=== PATIENT | female | born 1980 | race American Indian/Alaskan Native ===

== ENCOUNTER 2021-07-28 07:34 | Outpatient (CLI) | payer OTHER ==
--- NOTE | 2021-07-28 08:35 | Fluoroscopy Report ---
BARIUM SWALLOW Indication: MORBID OBESITY. Technique: Single and double contrast barium technique utilized to evaluate the esophagus. FINDINGS: To begin the exam, swallowing was evaluated in the lateral position under direct fluorosco py. Swallowing was normal. No mucosal irregularity, mass, mass effect, or critical stenosis. There were no abnormal tertiary c ontractions as seen with dysmotility. No gastroesophageal reflux. IMPRESSION: Unremarkable exam. Fluoroscopic time: 1.2 minutes Number of fluoroscopic images: 24 Signer Name: Nils Bermudez Jr, MD Signed: 07/28/2021 8:31 AM Workstation Name: [id number]
== END 2021-07-28 07:35 | disposition home or self-care (01) ==
LOC: FLUORO 07:34
PROVIDERS: ATTEND Surgery
DX: E66.01 Morbid (severe) obesity due to excess calories (principal)
CPT/HCPCS: 74220

== ENCOUNTER 2021-10-27 06:26 | Day surgery (SDC) | payer OTHER ==
[2021-10-27] MEDS ORDERED: SODIUM CHLORIDE 0.9% 1000 ML 1,000 ML IV SCH (07:00)
--- NOTE | 2021-10-27 07:36 | Anesthesia Consultation ---
Anesthesia Consult and Med Hx Date of service: 10/27/21 - Airway Anesthetic Teeth Evaluation: Good ROM Head & Neck: Adequate Mental/Hyoid Distance: Adequate Mallampati Class: Class II Intubation Access Assessment: Probably Good - Pulmonary Exam CTA: Yes - Cardiac Exam Cardiac Exam: RRR - Pre-Operative Health Status ASA Pre-Surgery Classification: ASA3 Proposed Anesthetic Plan: MAC - Pulmonary Hx Smoking: No Hx Asthma: Yes Hx Respiratory Symptoms: No Hx Sleep Apnea: Yes - Cardiovascular System Hx Hypertension: No Hx Heart Attack/AMI: No - Central Nervous System Hx Neuromuscular Disorder: No - Gastrointestinal Hx Gastroesophageal Reflux Disease: No - Endocrine Hx Renal Disease: No Hx Non-Insulin Dependent Diabetes: No Hx Thyroid Disease: No - Hematic Hx Anemia: No - Other Systems Hx Alcohol Use: No Hx Substance Use: No Hx Cancer: No Hx Obesity: Yes (BMI 48)
--- NOTE | 2021-10-27 07:36 | Anesthesia Day of Surgery ---
Anesthesia Day of Surgery - Day of Surgery Patient Examined: Yes Patient H&P Reviewed: Yes Patient is NPO: Yes
[2021-10-27] MEDS ORDERED: propofoL 200 MG/20 ML VIAL IV ONE (07:42)
[2021-10-27] MEDS ORDERED: LIDOCAINE MPF (2%) 20 MG/1 ML VIAL 5 ML ONE (07:42)
--- NOTE | 2021-10-27 08:08 | Operative Report ---
Operative Report Operative Report: DATE: 10/27/2021 SURGERY: Upper endoscopy. SURGEON: Jovan Crow M.D. PROCEDURE: EGD with biopsy PRE OP DX: morbid obesity, GERD POST OP DX: morbid obesity, GERD TYPE OF ANESTHESIA: MAC. ESTIMATED BLOOD LOSS: None. COMPLICATIONS: None. SPECIMENS REMOVED: antral biopsy FINDINGS: 1. Small hiatal hernia. 2. Otherwise, normal esophagus, stomach and first portion of duodenum. INDICATIONS:INDICATION FOR PROCEDURE: Patient is a 41-year-old female with a long history of morbid obesity. She is planned to have a weight loss procedure and is here for preoperative planning EGD. PROCEDURE DETAILS: After consent was reviewed, patient was taken back to the operating room where patient was placed in the left lateral decubitus position and a bite block was placed in the mouth. After a time-out was called, MAC anesthesia was initiated. I then passed the endoscope into her oropharynx, into her esophagus, visualized the entire esophagus, which was all within normal limits. Z-line was noted to about 36cm from incisors. I then visualized the stomach and the first portion of the duodenum and there were no abnormalities I could clearly visualize except for antral gastritis. A cold forceps biopsy of the antrum was taken and will be sent to pathology to evaluate for H.pylori. I then retroflexed the scope in the stomach and visualized the hiatus and I could see a small hiatal hernia. I then desufflated the stomach and removed the endoscope. Patient tolerated procedure well and was transferred to recovery room in good and stable condition.
--- NOTE | 2021-10-27 08:10 | Discharge Summary ---
Providers - Providers Date of Admission: 10/27/2021 Date of discharge: 10/27/21 Attending physician: MACKENZIE PICKARD MD Primary care physician: PLYWOOD PATCHER Hospitalization Reason for admission: pre-op egd Condition: Good Procedures: egd with bx Hospital course: Pt presented for a pre-op EGD as part of planning for up coming bariatric surgery. Procedure was uneventful and pt recovered well and was discharged to home. Disposition: 01 HOME / SELF CARE / HOMELESS Final Discharge Diagnosis (Prints w/discharge instructions): dyspepsia, morbid obesity Core Measure Documentation - Palliative Care Palliative Care/ Comfort Measures: Not Applicable - Core Measures Any of the following diagnoses?: none Exam - Physical Exam Narrative exam: unchanged from pre-op Plan Activity: advance as tolerated Diet: low carbohydrate Follow up with: PRIMARY CAREMD [Primary Care Provider] - 7 Days
[2021-10-27 09:11] VITALS: BP 101/72
--- NOTE | 2021-10-27 09:16 | Post Anesthesia Evaluation ---
- Post Anesthesia Evaluation Patient Participated: Yes Airway Patent: Yes Stable Respiratory Function: Yes Nausea/Vomiting: No Temp > 96.8F: Yes Pain Manageable: Yes Adequeate Hydration: Yes Anesthesia Complications: No
== END 2021-10-27 08:50 | disposition home or self-care (01) ==
LOC: GIO 06:26
PROVIDERS: ATTEND Surgery
DX: K21.9 Gastro-esophageal reflux disease without esophagitis (principal); E66.01 Morbid (severe) obesity due to excess calories; K30 Functional dyspepsia; K44.9 Diaphragmatic hernia without obstruction or gangrene; J45.909 Unspecified asthma, uncomplicated; G47.30 Sleep apnea, unspecified; F41.9 Anxiety disorder, unspecified; Z68.42 Body mass index [BMI] 45.0-49.9, adult; Z88.8 Allergy status to other drugs, medicaments and biological substances
CPT/HCPCS: 43239; 81025; 88305; 88342; J2704; J3490; J7030; J7120; Q0162

== ENCOUNTER 2021-12-07 08:57 | Inpatient (IN) | payer OTHER ==
--- NOTE | 2021-12-03 11:15 | Anesthesia Consultation ---
Anesthesia Consult and Med Hx - Airway Anesthetic Teeth Evaluation: Good ROM Head & Neck: Adequate Mental/Hyoid Distance: Adequate Mallampati Class: Class III Intubation Access Assessment: Probably Good - Pulmonary Exam CTA: Yes - Cardiac Exam Cardiac Exam: RRR - Pre-Operative Health Status ASA Pre-Surgery Classification: ASA3 Proposed Anesthetic Plan: General - Pulmonary Hx Smoking: No Hx Asthma: Yes (Last used inhaler approx 3 days ago) Hx Respiratory Symptoms: No Hx Sleep Apnea: Yes - Cardiovascular System Hx Hypertension: No Hx Heart Attack/AMI: No - Central Nervous System Hx Neuromuscular Disorder: No Hx Psychiatric Problems: Yes - Gastrointestinal Hx Gastroesophageal Reflux Disease: No - Endocrine Hx Renal Disease: No Hx Non-Insulin Dependent Diabetes: No Hx Thyroid Disease: No - Hematic Hx Anemia: No - Other Systems Hx Alcohol Use: Yes (Occas) Hx Substance Use: No Hx Cancer: No Hx Obesity: Yes (BMI 48) - Additional Comments Anesthesia Medical History Comments: GA with TAP discussed and accepted. All labs and chart were reviewed. All questions answered
[2021-12-03 11:23] LABS: Hematocrit 38.3 % (30.3-42.9); Hemoglobin 13.3 gm/dl (10.1-14.3); Mean Corpuscular HGB Conc 35 % (30-34); Mean Corpuscular Volume 78 fl (79-97); Platelet Count 298 K/mm3 (140-440); Red Cell Distribution Width 14.8 % (13.2-15.2)
[2021-12-03 11:41] LABS: Alanine Aminotransferase 20 units/L (7-56); Albumin 4.2 g/dL (3.9-5); Blood Urea Nitrogen 17 mg/dL (7-17); Calcium 9.7 mg/dL (8.4-10.2); Hemolysis Index 0
[2021-12-03 11:48] LABS: BUN/Creatinine Ratio 28
[~2021-12-07 08:57] MED LIST: ACETAMINOPHEN IV 1,000 MG/100 ML BOTTLE IV NR; BUPIVACAINE/PF (0.5%) 5 MG/1 ML 10 ML VIAL INFILTRATI NR; CELECOXIB 200 MG CAP PO NR; ENOXAPARIN 40 MG/0.4 ML INJ SUB-Q NR; GABAPENTIN 300 MG CAP PO NR; GABAPENTIN 500 MG/10 ML ORAL LIQD PO NR; LACTATED RINGERS 1,000 ML IV SCH; LIDOCAINE (1%) 10 MG/1 ML VIAL 20 ML MDV INFILTRATI NR; MIDAZOLAM 2 MG/2 ML INJ IV NR; SODIUM CHLORIDE 0.9% P/F 10 ML VIAL INFILTRATI NR; fentaNYL 100 MCG/2 ML INJ IV NR; methOCARBAMOL 1,000 MG in SODIUM CHLORIDE 0.9% 250ML 250 ML IV SCH; metroNIDAZOLE/NS 500 MG/100 ML 500 MG/100 ML BAG IV NR
[2021-12-07] MEDS ORDERED: SCOPOLAMINE TRANSDERMAL PATCH 72 HR TD SCH (10:00)
--- NOTE | 2021-12-07 10:10 | Anesthesia Day of Surgery ---
Anesthesia Day of Surgery - Day of Surgery Patient Examined: Yes Patient H&P Reviewed: Yes Patient is NPO: Yes Cardiac Clearance: Yes Pulmonary Clearance: Yes
[2021-12-07] MEDS ORDERED: LIDOCAINE 2%/EPINEPHRINE 1:200,000 VIAL (20 ML) INFILTRATI ONE (11:05)
[2021-12-07] MEDS ORDERED: BUPIVACAINE/PF (0.25%) 2.5 MG/ML 30 ML VIAL INFILTRATI ONE ×2 (11:05→13:28)
[2021-12-07] MEDS ORDERED: KETOROLAC 30 MG/1 ML INJ ONE (11:35)
[2021-12-07] MEDS ORDERED: dexAMETHasone 20 MG/5 ML VIAL ONE (11:35)
[2021-12-07] MEDS ORDERED: ONDANSETRON 4 MG/2 ML INJ ONE (11:35)
[2021-12-07] MEDS ORDERED: ROCURONIUM 50 MG/5 ML INJ IV ONE ×2 (11:35→13:54)
[2021-12-07] MEDS ORDERED: KETAMINE/STERILE WATER 50 MG/ML SYRINGE ONE (11:37)
[2021-12-07] MEDS ORDERED: SUGAMMADEX SODIUM 200 MG/2 ML VIAL IV ONE (11:49)
[2021-12-07] MEDS ORDERED: MAGNESIUM SULFATE 4 GM/100 ML BAG IV ONE (11:49)
[2021-12-07] MEDS ORDERED: LIDOCAINE MPF (2%) 20 MG/1 ML VIAL 5 ML ONE (12:10)
[2021-12-07] MEDS ORDERED: fentaNYL 100 MCG/2 ML INJ ONE (12:10)
--- OUTSIDE RECORDS SUMMARY | 2021-12-07 12:52 | External Medical Summary ---
:1980 Author Organization [facility], [facility] Address [address] [place] [address] Care Team Providers Name Role Phone Mignon Unavailable [phone] PROBLEMS Type Condition ICD9-CM [id number] Onset Condition W/U Status Risk SNOM ED Notes Code Code Dates Status Code Problem Morbid E66.01 Active confirmed 592257266 (severe) obesity due to excess calories Problem Dietary Z71.3 Active confirmed 673681771 counseling and surveillance Problem Functional K30 Active confirmed 0193769 dyspepsia Problem Sleep apnea, G47.30 Active confirmed 9806703 6 unspecified Problem Anxiety F41.9 Active confirmed 803322810 disorder, unspecified ALLERGIES Allergen (clinical drug Drug/Non Drug Allergy Reaction Allergy Type Onset Date Status ingredient) documented on EMR hydrocodone Hydrocodone Unknown Drug Allergy Active ENCOUNTERS from 1981 to 2021-12-07 Encounter Location Date Provider Diagnosis [facility] Nov, Jovan Crow Morbi d (severe) RD [facility] obesity due to excess of [facility] [place], [place] calorie s E66.01 and [id number] Sleep apnea, unspecified G47 .30 IMMUNIZATIONS No Information SOCIAL HISTORY Sex Assigned At : Social History Observation Description Sex Assigned At Unknown REASON FOR REFERRAL from 1980 to 2021-12-07 Reason GASTRIC SLEEVE Diagnosis 1 Morbid (severe) obesity due to excess calories (E66.01) Diagnosis 2 Sleep apnea, unspecified (G4 7.30) Diagnosis 3 Anxiety disorder, unspecifie d (F41.9) Diagnosis 4 Functional dyspepsia (K30) Diagnosis 5 Gastro-esophageal reflux dis ease without esophagitis (K21.9) Referral Organization [facility] Referring Provider First Name Jovan Referring Provider Last Name Mignon Referring Provider Specialty Surgery Referred Provider [facility], - Referral Priority Routine VITAL SIGNS Height 65.5 in Nov, Weight 292 lbs Nov, Temperature 97.3 degrees Fahrenheit Nov, BMI 47.85 kg/m2 Nov, Blood pressure systolic 146 mm Hg Nov, Blood pressure diastolic 83 mm Hg Nov, MEDICATIONS Medication SIG (Take, Route, Frequency, Notes Start Date End Indra e Status Duration) Vitamin D Active Sertraline HCl 100 MG 1 tablet Orally Once a day Active for 30 day(s) Ondansetron 4 MG 1-2 tablet on the tongue and Nov, Active allow to dissolve Orally q 4-6 hours prn nausea Omeprazole 40 MG 1 capsule 30 minutes before Nov, Active morning meal Orally Once a day albuterol prn Active tiZANidine HCl 4 MG 1 tablet as needed Orally Active Three times a day PROCEDURES No Information RESULTS No Results REASON FOR VISIT Gastric Sleeve Preop MEDICAL (GENERAL) HISTORY Type Description Date Medical History anxiety Medical History right knee pain Medical History sleep apnea Medical History asthma Surgical History No know Surgical history Goals Section No Information Health Concerns No Information MEDICAL EQUIPMENT No Information MENTAL STATUS No Information FUNCTIONAL STATUS No Information ASSESSMENTS Encounter Date Diagnosis Assessment Notes Treatment Notes Treatm ent Clinical Notes Nov, Morbid (severe) An hour was spent obesity due to with patient excess calories reinforcing diet, (ICD-10 - E66.01) vitamin requirements and lifestyle education, A quiz was administered and reviewed to verify understanding of intended procedure and post operative care. Consent forms were reviewed with patient and signed answering all questions, Pre-operative labs were ordered. Nov, Sleep apnea, Continue use of CPAP unspecified machine, should (ICD-10 - G47.30) resolve or greatly improve after weight loss surgery, and will titrate CPAP machine as tolerated. PLAN OF TREATMENT Medication Medication Name Sig Start Date Stop Date Ondansetron 4 MG 1-2 tablet on the tongue and allow to Nov, 022 dissolve Orally q 4-6 hours prn nausea Omeprazole 40 MG 1 capsule 30 minutes before morning meal Nov Orally Once a day Treatment Notes Assessment Notes Clinical Notes Morbid (severe) obesity due to An hour was spent with patient reinforcing diet, vitamin requirements and lifestyle education, A quiz was administered and reviewed to verify understanding of intended procedure and post operative care. excess calories Consent forms were reviewed with patient and signed answering all questions, Pre-operative labs were ordered. Sleep apnea, unspecified Continue use of CPAP machine , should resolve or greatly improve after weight loss surgery, and will titrate CPAP machine as tolerated. Referrals Referral Date Details GASTRIC SLEEVE Next Appt Details for surgery Reason: Provider Name:Jovan Crow, 2021-11- 8 11:00:00 AM, [address] [facility], [place], [place], [phone], Insurance Providers Payer Name Payer Payer Insured Patient Coverage Coverage Subscriber Group Address Phone Name Relationship Start End Date Number Nu mber to Insured Date JACQUELINE [address] JULIANN,MOHINDER self [id number] [place] CLAIMS [id number] [facility] [address] [facility] [place] [address]
[2021-12-07] MEDS ORDERED: SODIUM CHLORIDE 0.9% IRR 1,500 ML BOTTLE IR ONE (13:28)
[2021-12-07] MEDS ORDERED: LIDOCAINE 2%/EPINEPHRINE 1:100,000 VIAL (20 ML) INFILTRATI ONE (13:28)
[2021-12-07] MEDS ORDERED: ePHEDrine SULFATE 50 MG/1 ML INJ ONE (13:46)
[2021-12-07] MEDS ORDERED: propofoL 200 MG/20 ML VIAL IV ONE ×2 (13:50→14:28)
[2021-12-07] MEDS ORDERED: SIMETHICONE 80 MG CHEW TAB PO PRN (15:10)
[2021-12-07] MEDS ORDERED: HYDROmorphone 1 MG/1 ML INJ IV PRN (15:10)
[2021-12-07] MEDS ORDERED: METOCLOPRAMIDE 10 MG/2 ML INJ IV PRN (15:10)
[2021-12-07] MEDS ORDERED: hydrALAZINE 20 MG/1 ML INJ IV PRN (15:10)
[2021-12-07] MEDS ORDERED: LACTATED RINGERS 1,000 ML IV SCH (15:15)
[2021-12-07] MEDS ORDERED: ALBUTEROL 8.5 GM MDI INHALATION IH PRN (15:16)
--- NOTE | 2021-12-07 15:19 | Operative Report ---
Operative Report Operative Report: DATE:12/07/2021 Surgeon: Jovan Crow MD General Matcher surgeon: Pre-op Dx: morbid obesity, hiatal hernia Post-op Dx: morbid obesity, hiatal hernia Procedure: 1. laparoscopic sleeve gastrectomy, 2. hiatal hernia repair Anesthesia: GETA and TAP block EBL: <10ml Specimen: gastric remnant Complication: none immediate Indication: 41 year old female with a history of morbid obesity . Pt is here for sleeve gastrectomy for weight loss to achieve healthier weight and improve or resolve his co-morbidities. She expressed understanding of the risks and benefits. PROCEDURE IN DETAIL: After consent was reviewed, patient was taken back to the operating room, where patient was placed supine on the bed with both arms out. The patient's legs were doubly strapped to the bed. Patient had a foot board in place. Patient had a body warmer placed by anesthesia. General anesthesia was induced with successful endotracheal intubation. Patient was then prepped and draped in normal sterile surgical fashion. After a time-out was called, I made a stab incision in the left subcostal area and placed a Veress needle through this incision and insufflated the abdomen to 15 mmHg pressure. I then counted down a handsbreadth below the xiphoid process in the midline and slightly left lateral injected local anesthetic and made about 1 cm transverse incision. I then used a 5-mm Optiview trocar to enter into the abdomen. There was no gross injury to any intra-abdominal structures. I then placed a 30-degree scope through this port and inspected the abdomen. I then placed a 8-mm port in the right upper quadrant, and 1 5mm in the epigastric area below the costovertebral angle. I then placed a 15-mm port about a handsbreadth in the right mid abdomen. After which a 5mm port was placed in left upper quadrant port along the anterior axillary line in a similar fashion. A liver retractor was placed to the epigastric port to elevate the left lateral lobe and liver. There was a small hiatal hernia appreciated that was accentuated with right and left crural dissection. Hiatal hernia sac was dissected from the crura until the GE junction was resting about 2cm below the level of the diaphragm without tension. An anterior crura-plasty was preformed a U-stitch using surgidac suture. The anterior gastric fat pad was excised. Starting approximately 6 cm proximal to the pylorus, using a Enseal device the short gastrics were taken all the way to the left lesley. Once the lateral portion of the stomach was mobile anesthesia passed a 40 [place] bougie along the medial aspect to act as a stent. Using serial firings of endoscopic stapler to gold, followed by 4 blue, the lateral portion of the stomach was transected making sure to did not close to the 2 cm to the incisura. All staple loads were supported with Ethicon buttress strips. The sleeve stomach was seen to be without kink obstruction or twisting. The pressure was decreased to 10 mmHg. The staple line was inspected for approximately 5 minutes. There was no significant bleeding appreciated except for a slight ooze at the most distal portion of the staple line. Bleeding was minimal and easily controlled with minimal cautery. Vistaseal was then sprayed along the entirety of the staple line. The liver retractor was removed. A TAP block was performed with 60ml of 0.25% marcaine along bilateral mid axillary lines starting from the subcostal region to just below the level of the umbilicus This was after the gastric remnant was grasped and pulled into the 15 mm trocar site. The stomach was extracted via the 15 mm trocar site. The fascia was closed using a wendy kaitlyn device at the level of the fascia with an 0 PDS. trocars were removed under direct visualization. All skin incisions were closed with 4-0 Monocryl followed by Dermabond. Patient was awoken, extubated, and taken to recovery stable condition. All counts were correct.
[2021-12-07] MEDS: ceFAZolin/NS 1 GM/50 ML 1 GM/50 ML BAG IV SCH (17:23)
[2021-12-07] MEDS: ACETAMINOPHEN IV 1,000 MG/100 ML BOTTLE IV SCH ×2 (17:27→21:32)
[2021-12-07] MEDS: MORPHINE 2 MG/1 ML INJ IV PRN (17:38)
[2021-12-07] MEDS: ONDANSETRON 4 MG/2 ML INJ IV PRN ×2 (17:39→21:17)
[2021-12-07] MEDS: PANTOPRAZOLE 40 MG INJ IV SCH (17:52)
[2021-12-07] MEDS: metroNIDAZOLE/NS 500 MG/100 ML 500 MG/100 ML BAG IV SCH (17:54)
[2021-12-07] MEDS: KETOROLAC 30 MG/1 ML INJ IV SCH ×2 (17:56→21:15)
[2021-12-07] MEDS ORDERED: ALBUTEROL 2.5 MG/3 ML NEBU IH PRN (18:38)
[2021-12-08] MEDS: ceFAZolin/NS 1 GM/50 ML 1 GM/50 ML BAG IV SCH (00:18)
[2021-12-08] MEDS: metroNIDAZOLE/NS 500 MG/100 ML 500 MG/100 ML BAG IV SCH ×2 (00:53→09:48)
[2021-12-08] MEDS: KETOROLAC 30 MG/1 ML INJ IV SCH ×2 (04:17→09:58)
[2021-12-08] MEDS: ACETAMINOPHEN IV 1,000 MG/100 ML BOTTLE IV SCH (04:17)
[2021-12-08] MEDS: ONDANSETRON 4 MG/2 ML INJ IV PRN (04:20)
[2021-12-08 05:05] LABS: Basophils % (Auto) 0.2 % (0.0-1.8); Hematocrit 39.9 % (30.3-42.9); Lymphocytes # (Auto) 0.6 K/mm3 (1.2-5.4); Lymphocytes % (Auto) 4.9 % (13.4-35.0); Mean Corpuscular HGB Conc 33 % (30-34); Mean Corpuscular Volume 79 fl (79-97); Monocytes # (Auto) 0.6 K/mm3 (0.0-0.8); Platelet Count 271 K/mm3 (140-440); Red Blood Count 5.03 M/mm3 (3.65-5.03); Red Cell Distribution Width 15.1 % (13.2-15.2)
[2021-12-08 05:36] LABS: Alanine Aminotransferase 27 units/L (7-56); Albumin 3.8 g/dL (3.9-5); Blood Urea Nitrogen 10 mg/dL (7-17); Calcium 8.9 mg/dL (8.4-10.2); Hemolysis Index 10
[2021-12-08 05:39] LABS: BUN/Creatinine Ratio 14
[2021-12-08] MEDS: MORPHINE 2 MG/1 ML INJ IV PRN (05:56)
[2021-12-08] MEDS: PANTOPRAZOLE 40 MG INJ IV SCH (09:48)
[2021-12-08] MEDS ORDERED: ENOXAPARIN 40 MG/0.4 ML INJ SUB-Q SCH (10:00)
[2021-12-08] MEDS ORDERED: ACETAMINOPEN W/CODEINE 120-12MG ORAL LIQD 5 ML PO PRN (10:00)
[2021-12-08] MEDS ORDERED: SERTRALINE 100 MG TAB PO SCH (10:00)
--- NOTE | 2021-12-08 13:35 | Post Anesthesia Evaluation ---
- Post Anesthesia Evaluation Patient Participated: Yes Airway Patent: Yes Stable Respiratory Function: Yes Nausea/Vomiting: No Temp > 96.8F: Yes Pain Manageable: Yes Adequeate Hydration: Yes Anesthesia Complications: No Block Receding Appropriately: Yes Patient on Ventilator: No
--- NOTE | 2021-12-08 14:55 | Discharge Summary ---
Providers - Providers Date of Admission: 12/07/21 08:57 Date of discharge: 12/08/21 Attending physician: MACKENZIE PICKARD MD 12/07/21 15:10 Physical Therapy Evaluation and Treat [CONS] Routine Comment: Reason For Exam: s/p bariatric surgery Hospitalization Reason for admission: s/p bariatric surgery Condition: Good Procedures: lap sleeve gastrectomy with hiatal hernia repair Hospital course: Patient had an uncomplicated lap gastric sleeve with hiatal hernia repair. She was admitted for recovery after surgery. She remained stable with laboratory values and vitals that were in acceptable limits. She was tolerating liquids and ambulating well with adequate pain control. Patient was discharged on posto perative day #1 showing no gross clinical signs of leak or bleeding. Patient is to follow-up in the office in 2 weeks. Disposition: 01 HOME / SELF CARE / HOMELESS Final Discharge Diagnosis (Prints w/discharge instructions): morbid obesity, sleep apnea Core Measure Documentation - Palliative Care Palliative Care/ Comfort Measures: Not Applicable - Core Measures Any of the following diagnoses?: none Exam - Constitutional Vitals: Temp Pulse Resp BP Pulse Ox 98.6 F 60 14 136/77 97 12/08/21 11:46 12/08/21 11:46 12/08/21 11:46 12/08/21 11:46 12/08/21 11:46 General appearance: Present: no acute distress, obese - EENT Eyes: Present: PERRL. Absent: scleral icterus ENT: hearing intact - Respiratory Respiratory effort: normal - Cardiovascular Heart Sounds: Present: S1 & S2 - Extremities Extremities: no ischemia - Abdominal General gastrointestinal: Present: soft, other (incisions c/d/i, appropriatley tender to palpation) Plan Activity: advance as tolerated Diet: clear liquids Wound: open to air, keep clean and dry Follow up with: DR KERRI [Other] - 7 Days
[2021-12-08 18:07] VITALS: BP 125/74
== END 2021-12-08 18:05 | disposition home or self-care (01) | DRG 621 ==
LOC: 3A 08:57 → 4A 13:06
PROVIDERS: ADMIT Surgery; ATTEND Surgery
PROC: 0DB64Z3 Excision of Stomach, Percutaneous Endoscopic Approach, Vertical (ICD-10-PCS; principal; 2021-12-07)
PROC: 0BQT4ZZ Repair Diaphragm, Percutaneous Endoscopic Approach (ICD-10-PCS; 2021-12-07)
DX: E66.01 Morbid (severe) obesity due to excess calories (principal); Z68.42 Body mass index [BMI] 45.0-49.9, adult; K44.9 Diaphragmatic hernia without obstruction or gangrene; G47.30 Sleep apnea, unspecified; Z20.822 Contact with and (suspected) exposure to COVID-19
CPT/HCPCS: 36415; 80053; 84703; 85025; 85027; 88307; 88342; G0378; J3490; J7120; J7121; J7517; C9113; J0131; J0690; J1100; J1650; J1885; J2250; J2270; J2405; J2704; J3010; J3475; U0003